=== PATIENT | female | born 1995 | race Asian ===

== ENCOUNTER 2018-03-09 08:31 | Outpatient (CLI) | payer MEDICAID, OTHER ==
--- NOTE | 2018-03-12 13:13 | Ultrasound Report ---
ULTRASOUND LEFT BREAST: 03/09/2018 INDICATION: Palpable abnormalities. TECHNIQUE: Real-time scanning was performed with personal financial representative static images obtained. FINDINGS: The left breast was performed, directed to the palpable abnormalities identified by the patient. Heterogeneous parenchyma is seen. No discrete solid or cystic mass is identified. No sonographically suspicious findings are present. IMPRESSION: NEGATIVE EXAMINATION. RECOMMENDATION: Routine annual screening, to commence at age 40, unless otherwise clinically indicated. BIRADS CATEGORY 1 - NEGATIVE. TD: 03/09/2018 09:32
== END 2018-03-09 08:32 | disposition home or self-care (01) ==
LOC: DI 08:31
PROVIDERS: ATTEND Nurse Practitioner
DX: N63.0 Unspecified lump in unspecified breast (principal)
CPT/HCPCS: 76642

== ENCOUNTER 2018-10-04 10:57 | Outpatient (CLI) | payer OTHER ==
[2018-10-05 13:13] LABS: HEPATITIS C ANTIBODY NON-REACTIVE (NON-REACTIVE)
[2018-10-05 14:48] LABS: HIV AG/AB 4TH GEN NON-REACTIVE (NON-REACTIVE)
[2018-10-06 10:11] LABS: HSV 1 IGG TYPE SPECIFIC AB <0.90 index; HSV 2 IGG TYPE SPECIFIC AB <0.90 index
== END 2018-10-04 23:59 | disposition home or self-care (01) ==
LOC: LAB.N 10:57
PROVIDERS: ATTEND Nurse Practitioner
DX: Z72.51 High risk heterosexual behavior (principal)
CPT/HCPCS: 36415; 81599; 86592; 86695; 86696; 86803; 87389; 87491; 87591